=== PATIENT | male | born 1990 | race Caucasian/White ===

== ENCOUNTER 2017-06-11 21:58 | Emergency (ER) | payer OTHER ==
[2017-06-11 22:12] VITALS: BP 154/99; PULSE 73; RESP 16; TEMP 98.2; O2SAT 95
--- NOTE | 2017-06-11 22:20 | EDPHY ---
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 He presents emergency room with a laceration to the palmar side of his left thumb. It is L-shaped 2 cm x 3 cm. No arterial vomit. No tendon vomit. Past Medical History: No significant medical history Past Surgical History: No significant surgical history Social History: Denies daily use of drugs alcohol tobacco products. He is right-hand dominant. Works as a household appliance mechanic. Family History: Noncontributory ROS REVIEW OF SYSTEMS: A comprehensive 10 point review of systems is otherwise negative aside from elements mentioned in the history of present illness. Exam Constitutional triage nursing summary reviewed, vital signs reviewed, awake/ alert. Eyes normal conjunctivae and sclera, EOMI, PERRLA. HENT normal inspection, atraumatic, moist mucus membranes, no epistaxis, neck supple/ no meningismus, no raccoon eyes. Respiratory clear to auscultation bilaterally, normal breath sounds, no respiratory distress, no wheezing. Cardiovascular rate normal, regular rhythm, no murmur, no edema, distal pulses normal. Gastrointestinal soft, non-tender, no rebound, no guarding, normal bowel sounds, no distension, no pulsatile mass. Genitourinary no CVA tenderness. Musculoskeletal no midline vertebral tenderness, full range of motion, no calf swelling, no tenderness of extremities, no meningismus, good pulses, neurovascularly intact. Skin Left Hand: Palmar side: Thumb: 2cm x 3cmx. No tendon involvement. no arterial involvement. Neurologic awake, alert and oriented x 3, AAOx3, moves all 4 extremities equally, motor intact, sensory intact, CN II-XII intact, normal cerebellar, normal vision, normal speech. Psychiatric normal mood/affect. Heme/Lymph/Immune no lymphadenopathy. Differential Diagnosis: Laceration, soft tissue injury, finger laceration Medical Decision Making: Plan for this patient he will need his wound cleaned and irrigated out. Explored for foreign bodies. And then repaired. Re-evaluation: Laceration Repair Procedure: Verbal Consent was obtained, Under sterile conditions, The patient had lidocaine with epinephrine used approximately 4ccs to local anesthetize the left thumb L shape 2 cm x 3 cm thumb laceration The wound was copiously irrigated with sterile fluid, the wound was explored for foreign bodies there were none visualized, the wound was explored with a sterile glove to the base. There are no deep structures involved, including no arterial injury. SIX 6.O PROLENE interrupted Sutures were placed in this patient's laceration. He had good close approximation of the wound edges. He Tolerated this well. Patient understands to have sutures removed 10-12 days. Return emergency room if any signs or symptoms of infection this includes redness, pain, swelling any questions or concerns. He understands. Keep wound clean dry intact. Protected. Splint. Patient placed in a aluminum form splint for comfort and protection. Source: Patient - Personal History Current Tetanus/Diphtheria Vaccine: Yes Current Tetanus Diphtheria and Acellular Pertussis (TDAP): Yes Tetanus Vaccine Date: 2012? - Medical/Surgical History Other PMH: Riddhi-Danloss - Social History Smoking Status: Never smoked Constitutional: Initial Vital Signs Temperature (C) 36.8 C 06/11/17 22:10 Heart Rate 73 06/11/17 22:10 Respiratory Rate 16 06/11/17 22:10 Blood Pressure 154/99 H 06/11/17 22:10 O2 Sat (%) 95 06/11/17 22:10 O2 Delivery Mode Room Air Allergies/Adverse Reactions: No Known Allergies Allergy (Unverified 06/11/17 22:12) Home Medications: Medication Instructions Recorded Venlafaxine HCl 06/11/17 traZODone 06/11/17 Departure - Departure Disposition: Home, Routine, Self-Care Clinical Impression: Thumb laceration Qualifiers: Encounter type: initial encounter Damage to nail status: without damage Foreign body presence: without foreign body Laterality: left Qualified Code(s): S61.012A - Laceration without foreign body of left thumb without damage to nail , initial encounter Condition: Good Instructions: Laceration (ED), Care For Your Stitches (ED) Additional Instructions: 1. Please keep her wound clean, dry, intact and protected. 2. Watch for signs of infection this includes redness, drainage, pus, swelling, increasing pain. 3. Return emergency room if worsening symptoms questions concerns. 4. Keep her wound protected clean and intact. Referrals: NONE *PRIMARY CARE P,. [Primary Care Provider] - As per Instructions
== END 2017-06-11 22:54 | disposition home or self-care (01) ==
PROC: 0HQGXZZ Repair Left Hand Skin, External Approach (ICD-10-PCS; principal; 2017-06-11)
DX: S61.012A Laceration without foreign body of left thumb without damage to nail, initial encounter (principal); X58.XXXA Exposure to other specified factors, initial encounter
CPT/HCPCS: L3925